=== PATIENT | female | born 1955 | race Caucasian/White ===

== ENCOUNTER → 2016-11-28 | Outpatient (CLI) | payer OTHER ==
[~2016-11-28] MED LIST: ASPIRIN LO-DOSE81 MG PO; CELEXA40 MG PO; CLOBETASOL PROP60 GM; FELDENE20 MG PO; LEVOTHROID (S200 MCG PO; LOPRESSOR50 MG PO; MUCOMYST 20200 MG/M1 PO; NORVASC5 MG PO; PIROXICAM20 MG PO; RHEUMATREX2.5 MG PO; VOLTAREN100 GM TP; VOLTAREN50 MG TP; ZOCOR40 MG PO
== END | disposition disaster alternative care site (69) ==
LOC: LNHI 18:09
DX: I25.10 Atherosclerotic heart disease of native coronary artery without angina pectoris (principal); E78.2 Mixed hyperlipidemia; I44.7 Left bundle-branch block, unspecified; I10 Essential (primary) hypertension